=== PATIENT | female | born 1980 | race African-American/Black ===

== ENCOUNTER 2022-04-22 14:40 | Observation (INO) ==
[2022-04-22] MEDS ORDERED: cloNIDine 0.1 MG TABLET PO STA ×2 (15:20→16:06)
[2022-04-22] MEDS ORDERED: amLODIPine 5 MG TABLET PO STA (16:06)
[2022-04-22] MEDS: ONDANSETRON 4 MG/2 ML VIAL IV PRN (16:11)
[2022-04-22] MEDS ORDERED: LABETALOL 20 MG/4 ML SYRINGE IV ONE (17:34)
[2022-04-22] MEDS ORDERED: LABETALOL 20 MG/4 ML SYRINGE IV STA (17:35)
[2022-04-22 18:09] LABS: Basophils % 0.5 % (0.0-0.8); Eosinophils % 0.1 % (0.00-10.9); Hemoglobin 7.7 GM/DL (12.0-16.0)
[2022-04-22 18:26] LABS: Alanine Aminotransferase 25 U/L (13-56); Alkaline Phosphatase 70 U/L (45-117); Aspartate Amino Transferase 20 U/L (0-37); Bilirubin,Total < 0.39 MG/DL (0.20-1.00); Blood Urea Nitrogen 10 MG/DL (7-18); Calcium 9.3 MG/DL (8.5-10.1); Carbon Dioxide 26 MMOL/L (21-32); Chloride 108 MMOL/L (98-107); Glucose 126 MG/DL (74-106); Osmolality,Calculated 279.4 MOS/KG (273-304); Potassium 3.3 MMOL/L (3.5-5.1); Sodium 140 MMOL/L (136-145); Total Protein 8.8 G/DL (6.4-8.2)
[2022-04-22 18:31] LABS: Hematocrit 26.9 VOL% (35.7-47.0); Immature Granulocytes % 0.4 %; Immature Granulocytes Absolute 0.03 #; Lymphocytes # 0.9 10*3/uL (1.4-4.0); Lymphocytes % 11.8 % (21.3-54.2); Mean Corpuscular HGB Conc 28.6 GM/DL (32-36); Mean Corpuscular Volume 63.3 FL (87-102); Mean Platelet Volume 9.4 FL (9.6-12.0); Monocytes # 0.2 10*3/uL (0.11-0.8); Monocytes % 2.7 % (1.7-12.7); Neutrophils % 84.5 % (38.7-73.9); Platelet Count 566 T/CUMM (130-400); Red Blood Count 4.25 MC/CUMM (3.8-5.5); Red Cell Distribution Width 21.2 % (9.3-17.3); White Blood Count 7.3 T/CUMM (4-12)
[2022-04-22 18:34] LABS: Hypochromia 2+
[2022-04-22 18:35] LABS: Microcytosis 1+
[2022-04-22 18:36] LABS: Ovalocytes Slight; Target Cells Slight
[2022-04-22 18:37] LABS: Platelet Estimate Increased
[2022-04-22] MEDS ORDERED: hydrALAZINE 20 MG/1 ML VIAL IV STA (20:14)
[2022-04-22] MEDS ORDERED: PROMETHAZINE 25 MG/1 ML VIAL IV PRN (20:47)
[2022-04-22] MEDS ORDERED: PANTOPRAZOLE 40 MG VIAL IV ONE (20:47)
[2022-04-22] MEDS ORDERED: hydrALAZINE 20 MG/1 ML VIAL IV PRN (20:47)
[2022-04-22] MEDS ORDERED: ACETAMINOPHEN 325 MG TABLET PO PRN (20:47)
[2022-04-22] MEDS ORDERED: GLUCAGON 1 MG VIAL IM PRN (20:47)
[2022-04-22] MEDS ORDERED: DEXTROSE 10% 250 ML BAG IV PRN (20:54)
[2022-04-22 21:08] LABS: Urine Appearance Clear (Clear); Urine Color Yellow (Yellow)
[2022-04-22 21:09] LABS: Glucose,Urine (UA) Negative (Negative); Protein,Urine >=300 mg/dL (Negative); Urine Specific Gravity >= 1.030 (1.001-1.035)
[2022-04-22 21:10] LABS: Bilirubin,Urine Negative (Negative); Blood, Urine Moderate mg/dL (Negative); Ketones,Urine Negative (Negative); Nitrite,Urine Negative (Negative); Urine Urobilinogen 0.2 eU/dL (<2.0)
[2022-04-22 21:12] LABS: Mucus,Urine Occasional /LPF (Occasional); RBC,Urine 45 /HPF (0-4); Squamous Epithelial Cell,Urine Occasional /HPF (0-10)
[2022-04-22] MEDS: HYDROmorphone 1 MG/1 ML SYRINGE IV PRN (22:18)
[2022-04-22] MEDS: POTASSIUM CHLORIDE RIDER 10 MEQ/100 ML PREMIX IV SCH (22:22)
[2022-04-23] MEDS: POTASSIUM CHLORIDE RIDER 10 MEQ/100 ML PREMIX IV SCH
[2022-04-23 05:21] LABS: Folate 14.57 NG/ML (5.38-24.0)
[2022-04-23 05:25] LABS: Calcium 8.9 MG/DL (8.5-10.1)
[2022-04-23 05:26] LABS: % Iron Saturation 3.6 % (18-50); Osmolality,Calculated 282.3 MOS/KG (273-304); Potassium 3.6 MMOL/L (3.5-5.1)
[2022-04-23 06:35] LABS: Basophils % 0.5 % (0.0-0.8); Eosinophils % 0.4 % (0.00-10.9); Hematocrit 25.3 VOL% (35.7-47.0); Hemoglobin 7.3 GM/DL (12.0-16.0); Immature Granulocytes % 0.3 %; Immature Granulocytes Absolute 0.02 #; Lymphocytes # 2.7 10*3/uL (1.4-4.0); Mean Corpuscular HGB Conc 28.9 GM/DL (32-36); Mean Corpuscular Volume 63.1 FL (87-102); Mean Platelet Volume 9.6 FL (9.6-12.0); Monocytes # 0.8 10*3/uL (0.11-0.8); Monocytes % 10.2 % (1.7-12.7); Neutrophils % 52.6 % (38.7-73.9); Platelet Count 608 T/CUMM (130-400); Red Blood Count 4.01 MC/CUMM (3.8-5.5); Red Cell Distribution Width 21.5 % (9.3-17.3); White Blood Count 7.5 T/CUMM (4-12)
[2022-04-23] MEDS: hydrALAZINE 25 MG TABLET PO SCH ×3 (09:07→20:27)
[2022-04-23] MEDS: PANTOPRAZOLE 40 MG VIAL IV SCH (09:07)
[2022-04-23] MEDS: HALOPERIDOL 5 MG TABLET PO SCH (09:07)
[2022-04-23 11:32] LABS: Ferritin - (MMA) 4.2 ng/ml (22-336)
[2022-04-23] MEDS: traZODone 50 MG TABLET PO SCH (20:27)
[2022-04-24] MEDS: HYDROmorphone 1 MG/1 ML SYRINGE IV PRN (03:29)
[2022-04-24] MEDS: HALOPERIDOL 5 MG TABLET PO SCH (08:45)
[2022-04-24] MEDS: hydrALAZINE 25 MG TABLET PO SCH ×3 (08:45→20:33)
[2022-04-24] MEDS: PANTOPRAZOLE 40 MG VIAL IV SCH (08:45)
[2022-04-24] MEDS: ONDANSETRON 4 MG/2 ML VIAL IV PRN (08:59)
[2022-04-24] MEDS ORDERED: ONDANSETRON ODT 4 MG TABLET PO PRN (11:20)
[2022-04-24 17:35] LABS: Bilirubin,Urine Negative (Negative); Blood, Urine Large mg/dL (Negative); Glucose,Urine (UA) Negative (Negative); Hyaline Casts,Urine 5 /LPF (0-3); Ketones,Urine Negative (Negative); Mucus,Urine Occasional /LPF (Occasional); Nitrite,Urine Negative (Negative); Protein,Urine 100 mg/dL (Negative); RBC,Urine 370 /HPF (0-4); Squamous Epithelial Cell,Urine Occasional /HPF (0-10); Urine Appearance Clear (Clear); Urine Color Yellow (Yellow); Urine Urobilinogen 0.2 eU/dL (<2.0)
[2022-04-24] MEDS: SODIUM CHLORIDE 0.9% 1,000 ML IV SCH (18:47)
[2022-04-24 19:27] LABS: Barbiturates Screen,Urine Negative (Negative); Benzodiazepines Screen,Urine Negative (Negative); Cannabinoid Screen,Urine Negative (Negative); Opiate Screen,Urine Negative (Negative); Phencyclidine Screen,Urine Negative (Negative)
[2022-04-24] MEDS: traZODone 50 MG TABLET PO SCH (20:33)
[2022-04-25] MEDS: SODIUM CHLORIDE 0.9% 1,000 ML IV SCH ×2 (00:05→11:11)
[2022-04-25 05:40] LABS: Basophils # 0.1 10*3/uL (0.0-0.2); Basophils % 1.1 % (0.0-0.8); Eosinophils # 0.1 10*3/uL (0.0-0.87); Eosinophils % 1.1 % (0.00-10.9); Hematocrit 26.1 VOL% (35.7-47.0); Hemoglobin 7.4 GM/DL (12.0-16.0); Immature Granulocytes % 0.3 %; Immature Granulocytes Absolute 0.02 #; Lymphocytes # 2.1 10*3/uL (1.4-4.0); Lymphocytes % 32.8 % (21.3-54.2); Mean Corpuscular HGB Conc 28.4 GM/DL (32-36); Mean Platelet Volume 9.4 FL (9.6-12.0); Monocytes # 0.4 10*3/uL (0.11-0.8); Monocytes % 6.8 % (1.7-12.7); Neutrophils % 57.9 % (38.7-73.9); Platelet Count 602 T/CUMM (130-400); Red Blood Count 4.14 MC/CUMM (3.8-5.5); Red Cell Distribution Width 20.8 % (9.3-17.3); White Blood Count 6.5 T/CUMM (4-12)
[2022-04-25 06:06] LABS: Albumin 3.8 G/DL (3.4-5.0); Bilirubin,Total 0.5 MG/DL (0.20-1.00); Calcium 9.2 MG/DL (8.5-10.1); Osmolality,Calculated 274.7 MOS/KG (273-304); Potassium 3.2 MMOL/L (3.5-5.1); Total Protein 8.3 G/DL (6.4-8.2)
[2022-04-25 08:16] VITALS: BP 103/44
[2022-04-25] MEDS: HALOPERIDOL 5 MG TABLET PO SCH (08:29)
[2022-04-25] MEDS: PANTOPRAZOLE 40 MG VIAL IV SCH (08:29)
[2022-04-25] MEDS: hydrALAZINE 25 MG TABLET PO SCH (08:29)
[2022-04-25] MEDS ORDERED: POTASSIUM CHLORIDE 20 MEQ TABLET PO ONE (08:29)
== END 2022-04-25 11:12 | disposition home or self-care (01) ==
LOC: EDBD → EDUNIT# → N.EDINP 14:40 → N.ED 14:40 → SUATTDRO 20:47 → N.TELEN 21:37
PROVIDERS: ADMIT Hospitalist; ATTEND Family Medicine